=== PATIENT | female | born 1975 | race Caucasian/White ===

== ENCOUNTER 2020-03-03 07:00 | Outpatient (CLI) | payer SELFPAY ==
--- NOTE | 2020-03-03 07:10 | US_ITS ---
WS: [id number] ABDOMINAL ULTRASOUND REASON FOR EXAM: ABDOMINAL PAIN TECHNIQUE: Grayscale and Doppler ultrasound examination of the abdomen. FINDINGS: Pancreas: Visualized portions are unremarkable. No mass, calcification, or ductal dilatation. Abdominal aorta and IVC: Visualized portions are unremarkable. Liver: Liver measures 18.4 cm in length. The liver appears mildly enlarged with mildly increased echo genicity. Gallbladder: Gallbladder wall thickness measures 0.3 cm. There are no gallstones. Common bile duct is normal. Left kidney: Left kidney measures 11.3 cm x 4.0 cm x 4.4 cm. Left kidney cortex measures 1.1 cm. No m ass, calculus, or hydronephrosis. Right kidney: Right kidney measures 10.8 cm x 4.2 cm x 4.4 cm. Right kidney cortex measures 1.2 cm. N o mass, calculus, or hydronephrosis. Spleen: Spleen measures 10.1 cm x 4.7 cm x 3.5 cm. No focal lesions. No free fluid. US/US abdomen complete* [id number] IMPRESSION: Mild hepatic enlargement with fatty infiltration. No other significant abnormal ity.
== END 2020-03-03 07:01 | disposition home or self-care (01) ==
LOC: US 07:05
PROVIDERS: PCP Pediatrics; Visit Provider Pediatrics
DX: R10.9 Unspecified abdominal pain (principal); R16.0 Hepatomegaly, not elsewhere classified; K76.0 Fatty (change of) liver, not elsewhere classified
CPT/HCPCS: 76700

== ENCOUNTER 2021-08-05 09:08 | Outpatient (CLI) | payer SELFPAY ==
--- NOTE | 2021-08-05 09:16 | NM_ITS ---
WS: [id number] NUCLEAR MEDICINE HIDA SCAN CLINICAL INFORMATION: ABDOMINAL PAIN TECHNIQUE: Following intravenous administration of 8.1 mCi of technetium 99m mebrofenin, images of th e abdomen were obtained over the course of 60 minutes. Next, gallbladder ejection fraction was determ ined by obtaining preprandial and one-hour postprandial images of the gallbladder following oral daysi stion of Ensure. COMPARISON: Ultrasound abdomen March 03, 2020 FINDINGS: Hepatomegaly. Normal hepatic uptake at 5 minutes. Normal common bile duct and small bowel activity. G allbladder is visualized by 10 to 15 minutes. No evidence of acute cholecystitis. Gallbladder ejection fraction 41% at the lower end of the range within normal limits. No evidence of chronic cholecystitis. NM/NM hepatobiliary w phar* [id number] IMPRESSION: 1. Hepatomegaly. 2. No evidence of acute cholecystitis. 3. Gallbladder ejection fraction at the lower end of the range within normal l imits measuring 41%. No evidence of chronic cholecystitis.
== END 2021-08-05 09:09 | disposition home or self-care (01) ==
PROVIDERS: PCP Pediatrics; Visit Provider Pediatrics
DX: R10.9 Unspecified abdominal pain (principal); R16.0 Hepatomegaly, not elsewhere classified
CPT/HCPCS: 78227; A9537

== ENCOUNTER 2021-09-03 05:42 | Day surgery (SDC) | payer SELFPAY ==
[2021-09-02 14:53] VITALS: BMI 32.9
[2021-09-03] VITALS (17 sets, daily range): BP systolic 134–169; BP diastolic 49–128; PULSE 90–117; RESP 16–20; TEMP 36.4–36.6; O2SAT 90–98
[2021-09-03 06:14] LABS: OR HCG Qualitative Urine Negative (Negative)
--- NOTE | 2021-09-03 06:18 | W.PM.OPSUD ---
Surgery/Procedure H&P Update DATE OF PROCEDURE: September 03, 2021 DATE H&P PERFORMED: 08/25/21 H&P UPDATE INFORMATION: No changes to prior documentation PREOP DIAGNOSIS: Chronic cholecystitis. PLANNED PROCEDURE: Operation Date: 09/03/21 07:00 Proposed Procedures p Laparoscopic Cholecystectomy 66723/K81.1(Not Applicable) - Jimmy Kan MD
[2021-09-03] MEDS: scopolamine 1.5 Patch 1 PATCH TRANSDERMA (06:37)
[2021-09-03] MEDS: sodium chloride 0.9% 1,000 ML 30 ML IV (06:38)
--- NOTE | 2021-09-03 06:59 | ANES.PREANE2 ---
Pre-Anesthetic Assessment Height/Weight: Height 1.57 m Weight 81.647 kg Temp Pulse Resp BP Pulse Ox 97.6 F 101 H 18 144/98 95 09/03/21 06:07 09/03/21 06:07 09/03/21 06:07 09/03/21 06:07 09/03/21 06:07 Preop Diagnosis: Chronic cholecystitis. Operation Date: 09/03/21 07:00 Proposed Procedures p Laparoscopic Cholecystectomy 06851/K81.1(Not Applicable) - Jimmy Kan MD Familial anesthetic complications: None Was Beta Ruth taken within 24 hours: N/A Was Clonidine taken within 24 hours: N/A Last intake: Intake Last Liquid Date 09/02/21 Last Liquid Time 23:45 Last Solid Date 09/02/21 Last Solid Time 23:45 Exam alert, oriented x 3, clear to auscultation bilaterally and regular rate & rhythm Airway Submandibular: within normal limits Cervical ROM: within normal limits Mallampati: Class II Dentition: chipped Pulmonary None reported CV/HEM None reported None reported Hepatic None reported GI Symptomatic gallbladder disease Metabolic None reported Musc/skel None reported Neuropsych None reported Anesthetic Plan ASA status: 2 Anesthesia: Anesthesia Evaluation and General Other: We discussed risk and benefits of general anesthesia including PONV, sore throat (sometimes severe), corneal abrasion, positioning and peripheral nerve injuries, life threatening allergic reaction, post operative ICU admission requiring prolonged intubation, stroke, heart attack, , and rare incidences of recall. Patient consents to proceed with general anesthesia. Risk of > 500 ml blood loss (7ml/kg in children): No Medications/Allergies Home Medications Medication Instructions Recorded Confirmed Last Taken Type desvenlafaxine fumarate 100 mg 100 mg PO DAILY 09/02/21 09/03/21 09/02/21 History tablet, extended release 24 hr lemborexant 5 mg tablet (Dayvigo) 5 mg PO DAILY 09/02/21 09/02/21 Unknown History levothyroxine 50 mcg tablet 50 mcg PO DAILY 09/02/21 09/02/21 Unknown History (Euthyrox) meloxicam 7.5 mg tablet 7.5 mg PO DAILY 09/02/21 09/02/21 Unknown History hydrocodone 5 mg-acetaminophen 325 1 - 2 tab PO Q5H PRN #30 tab 09/03/21 Unknown Rx mg tablet ondansetron HCl 4 mg tablet 4 mg PO Q6H #20 tab 09/03/21 Unknown Rx Allergies Allergy/AdvReac Type Severity Reaction Status Date / Time No Known Allergies Allergy Verified 09/02/21 10:28 Current Medications Generic Name Dose Route Start Last Admin Trade Name Freq PRN Reason Stop Dose Admin Sodium Chloride 1,000 mls @ 30 mls/hr 09/03/21 06:00 09/03/21 06:38 Sodium Chloride 0.9% IV 09/04/21 05:59 30 mls/hr .Q24H CARROLL Administration Scopolamine 1 patch 09/03/21 05:50 09/03/21 06:37 Scopolamine 1.5 Patch TRANSDERMA 1 patch ONCE PRN Administration Nausea/ Vomiting Prophylaxis PFSH Anesthesia Female Reproductive History Date of last menstrual period: 07/27/21 Data Anesthesia Cardiac Studies: No Data to Display
[2021-09-03 07:12] LABS: Alanine Aminotransferase 25 U/L (0-33); Albumin Level 4.5 g/dL (3.5-5.2); Alkaline Phosphatase 90 IU/L (35-105); Aspartate Amino Transferase 22 U/L (0-32); Globulin 3.2 g/dL (1.3-4.6); Total Bilirubin 0.2 mg/dL (0.15-1.2); Total Protein 7.7 g/dL (6.6-8.7)
--- NOTE | 2021-09-03 07:45 | PM.OP ---
Operative Report Date of procedure: September 03, 2021 Pre-op diagnosis: Preop Diagnosis Chronic cholecystitis. Post-op findings: Same. Procedure done: Laparoscopic cholecystectomy. Specimens removed/disposition: Gallbladder. Surgeon: General Surgery Jimmy Kan MD Estimated blood loss: 5 mL. Complications: None. Procedure: The patient was brought to the Operating Room and was placed in a supine position on the Operating Room table. General endotracheal anesthesia was induced. The abdomen was prepped and draped in a sterile fashion. A small vertical incision was carried out in the inferior aspect of the umbilicus. Blunt dissection was carried out down to the fascia, which was grasped with a Marli clamp. A stay suture of 0 Vicryl was placed on either side of the midline and the midline fascia was incised. The underlying peritoneum was opened bluntly and the Darrel port was placed directly into the peritoneal cavity and was held in place with the inflatable balloon. The peritoneal cavity was insufflated with carbon dioxide. The laparoscope was used to inspect the abdominal cavity. No gross abnormalities were initially noted. A 5 millimeter port was placed in the epigastrium under direct vision. Two 5-millimeter ports were placed on the right side of the abdomen under direct vision. The gallbladder was grasped and was elevated. The patient was found to have some chronic adhesions involving the infundibular region extending partially up onto the gallbladder wall. These were all taken down using blunt dissection with a minimum of cautery to maintain hemostasis blunt dissection and hydrodissection were carried out in the infundibular region of the gallbladder and the cystic duct and cystic artery were identified. The gallbladder was partially removed from the liver bed using cautery and the spatula to confirm the anatomy before the structures were clipped and divided. The gallbladder was then removed from the liver bed using cautery and the spatula. After the gallbladder had been removed from the liver bed, the laparoscope was moved to the epigastric port and the gallbladder was removed from the peritoneal cavity through the umbilical port site. The stay sutures of Vicryl were tied to each other at the umbilicus, closing the defect so that it was airtight. The perihepatic spaces were irrigated with saline and the liver bed was reinspected. No ongoing problems were seen. The remaining ports were removed from the abdominal wall and the pneumoperitoneum was evacuated. All skin incisions were closed using inverted interrupted sutures of 4-0 Vicryl. Benzoin and Steri-Strips were placed over the incisions and Band-Aids followed. The patient was taken to the Recovery Area in stable condition postoperatively.
[2021-09-03] MEDS: fentaNYL 50 mcg/mL INJ 2mL 100 MCG IVP (08:09)
[2021-09-03] MEDS: ondansetron 2 mg/ML SDV 2 mL 4 MG IVP (08:25)
[2021-09-03] MEDS: HYDROmorphone 1 mg/mL INJ 1 mL 0.5 MG IVP ×2 (08:30→08:39)
[2021-09-03] MEDS: HYDROcodone-acetaminophen 5-325 mg Tablet 1 TAB PO (10:03)
[2021-09-03] MEDS: ondansetron 4 MG Tablet PO (10:03)
--- NOTE | 2021-09-03 13:08 | ANE.PACU2 ---
Inpatient post-anesthesia follow up: Airway intact: Yes Vital signs: Temperature 97.8 F Pulse Rate 113 Respiratory Rate 20 Blood Pressure 140/88 Pulse Oximetry 93 Oxygen Delivery Me thod Nasal Cannula Oxygen Flow Rate 2 Fraction of Inspir ed Oxygen Hydration adequate: Yes Nausea and vomiting: No Pain level: 5 Mental status: Baseline
== END 2021-09-03 10:20 | disposition home or self-care (01) ==
PROVIDERS: Anesthesiology; PCP Pediatrics; Visit Provider Surgery
PROC: 0FT44ZZ Resection of Gallbladder, Percutaneous Endoscopic Approach (ICD-10-PCS; CPT 47562; principal; 2021-09-03 07:00)
DX: K81.1 Chronic cholecystitis (principal)
CPT/HCPCS: 47562; 36415; 80076; 81025; 84703; 88304; J0690; J1100; J1170; J2405; J2704; J2710; J3010; J3490; J7030; Q0162